=== PATIENT | male | born 1970 | race Caucasian/White ===

== ENCOUNTER 2016-10-22 07:54 | Emergency (ER) | payer BC, OTHER ==
--- NOTE | 2016-10-22 08:09 | UC ---
Abdominal Pain Male HPI - HPI Summary HPI Summary: "Pt states he has a history of diverticulitis and thinks he is having an "episode." c/o abdominal cramping and constant left lower abdominal pain. Pain began . States he has been having regular bowel movements, last one this morning. " H/o sigmoid colon resection 2015 d/t abscess colectomy/admission. Has had 1 episode of diverticulitis since then about 1 yr ago. Usually treated with cipro and flagyl. NKDA. Denies fevers and chills. sx started 10/20, mild still. max pain /10 so far. increased pain with cough. has been told he has diverticulitis throughout entire colon. Denies hematuria or h/o kidney stones. Does not have PCP. - History of Current Complaint Chief Complaint: UCAbdominalPain Stated Complaint: ABD PAIN Time Seen by Provider: 10/22/16 07:59 - Allergies/Home Medications Allergies/Adverse Reactions: Allergies Allergy/AdvReac Type Severity Reaction Status Date / Time No Known Allergies Allergy Verified 10/22/16 08:05 PMH/Surg Hx/FS Hx/Imm Hx Previously Healthy: Yes - Surgical History Surgical History: Yes Surgery Procedure, Year, and Place: 2016 colon resection - Family History Known Family History: Positive: Hypertension - Social History Alcohol Use: None Substance Use Type: Marijuana Substance Use Comment - Amount & Last Used: twice daily Smoking Status (MU): Heavy Every Day Tobacco Smoker Type: Cigarettes Amount Used/How Often: 1 PK DAILY Household Exposure Type: Cigarettes Review of Systems Constitutional: Negative Skin: Negative Eyes: Negative ENT: Negative Respiratory: Negative Cardiovascular: Negative Gastrointestinal: Abdominal Pain Genitourinary: Negative Motor: Negative Neurovascular: Negative Musculoskeletal: Negative Neurological: Negative Psychological: Negative All Other Systems Reviewed And Are Negative: Yes Physical Exam Triage Information Reviewed: Yes Appearance: Well-Appearing, No Pain Distress, Well-Nourished Vital Signs: Initial Vital Signs Temp 98 F 10/22/16 07:56 Pulse 75 10/22/16 07:56 Resp 16 10/22/16 07:56 BP 133/86 10/22/16 07:56 Pulse Ox 98 10/22/16 07:56 Eye Exam: Normal ENT Exam: Normal ENT: Positive: Pharynx normal Neck exam: Normal Neck: Positive: Supple, Nontender, No Lymphadenopathy Respiratory Exam: Normal Respiratory: Positive: Lungs clear, Normal breath sounds, No respiratory distress, No accessory muscle use. Negative: Crackles, Rhonchi, Stridor, Wheezing Cardiovascular Exam: Normal Cardiovascular: Positive: RRR, No Murmur, Pulses Normal Abdomen Description: Positive: No Organomegaly, Soft, Other: - + mild LLQ and left mid abdomen tenderness, slightly more tender with cough during deep palpation.. Negative: CVA Tenderness (R), CVA Tenderness (L), Guarding, Peritoneal Signs Musculoskeletal Exam: Normal Neurological Exam: Normal Psychological Exam: Normal Skin Exam: Normal Abd Pain Male Course/Dx - Course Course Of Treatment: CT A& P with contrast + diverticuitis, no abscess. no other abnml on CT scan. CBC today. will need f/u with his surgeon. treat with cipro and flagyl as this is his nml course of treatment and does well with this. take probiotic. - Differential Dx/Clinical Impression Differential Diagnosis/HQI/PQRI: Bowel Obstruction, Constipation, Diverticulitis , Renal Colic Provider Diagnoses: diverticulitis Discharge - Discharge Plan Condition: Stable Disposition: HOME Prescriptions: Ciprofloxacin TAB* [Cipro 500 MG TAB*] 500 mg PO BID #28 tab Metronidazole [Flagyl 500 MG TAB] 500 mg PO TID #42 tab Patient Education Materials: Diverticulitis (ED) Referrals: Paco Nguyen [Medical Doctor] - 3 Days Tamar Boogie MD [Primary Care Provider] - Additional Instructions: You should take a probiotic that you can find OTC every day while on antibiotics to help prevent a dangerous infection called c diff that can develop from being on antibiotics. You should go to the ER with any worsening pain or symptoms. Your CT scan showed diverticulitis without abscess.
[2016-10-22 10:03] VITALS: BP 138/94
--- NOTE | 2016-10-22 10:46 | RAD ---
EDITED FOR CHARGES CLINICAL HISTORY: Left abdominal pain, history of diverticulitis COMPARISON: None TECHNIQUE: Multiple contiguous axial CT scans were obtained of the abdomen and pelvis, without intravenous contrast enhancement. Coronal and sagittal multiplanar reformations are submitted for review. Oral contrast was administered. FINDINGS: The study is limited by the lack of intravenous contrast. This limits evaluation of the solid organs and vasculature. LUNG BASES: The lung bases are clear. LIVER: The liver is normal in shape, size, contour, and attenuation. BILE DUCTS: There is no intrahepatic or extrahepatic biliary dilatation. GALLBLADDER: The gallbladder is normal, without pericholecystic inflammatory change. PANCREAS: The pancreas is normal, without mass or ductal dilatation. SPLEEN: Normal in size and appearance. UPPER GI TRACT: Evaluation of the gastrointestinal tract is limited by incomplete gastric distention. The upper GI tract is unremarkable. SMALL BOWEL AND MESENTERY: The small bowel is normal in contour, course, and caliber. There is no obstruction or dilatation. COLON: There is diverticulosis of the distal colon with stranding of the pericolonic fat at the descending-sigmoid junction. There is no likely the fluid collection to suggest abscess. There is a tubular, vermiform, hollow viscus that is blind ending, and originates from the cecum, consistent with a normal appendix. There is no periappendiceal inflammatory change. ADRENALS: Normal bilaterally. KIDNEYS: The kidneys are normal in shape, size, contour, and axis. There is no hydronephrosis or nephrolithiasis. BLADDER: The bladder is smooth in contour. PELVIC ORGANS: The prostate gland is normal. The seminal vesicles are symmetric. AORTA: The aorta is normal. IVC: Unremarkable LYMPH NODES: There is no lymphadenopathy by size criteria. ABDOMINAL WALL: There are small fat-containing ventral and umbilical hernias. BONES AND SOFT TISSUES: There are mild diffuse degenerative changes. OTHER: None IMPRESSION: DIVERTICULITIS, WITHOUT LOCULATED FLUID COLLECTION TO SUGGEST ABSCESS MTDD
[2016-10-22 13:39] LABS: Hematocrit 50 % (42-52); Hemoglobin 16.8 g/dl (14.0-18.0); Mean Corpuscular HGB Conc 34 g/dl (31-36); Mean Corpuscular Hemoglobin 31 pg (27-31); Mean Corpuscular Volume 92 fL (80-94); Mean Platelet Volume 9 um3 (7.4-10.4); Red Blood Count 5.41 10^6/ul (4.0-5.4); Red Cell Distribution Width 14 % (10.5-15); White Blood Count 10.3 10^3/ul (3.5-10.8)
== END 2016-10-22 11:37 | disposition home or self-care (01) ==
LOC: UCCORT 07:54
DX: K57.32 Diverticulitis of large intestine without perforation or abscess without bleeding (principal); Z90.49 Acquired absence of other specified parts of digestive tract; Z72.0 Tobacco use
CPT/HCPCS: 36415; 74176; 74177; 85025; 99212; G0463